=== PATIENT | male | born 1985 | race Hispanic/Latino ===

== ENCOUNTER 2019-12-27 22:51 | Emergency (ER) | payer SELFPAY ==
[2019-12-27] MEDS ORDERED: SUBLIMAZE 100 MCG/2 ML IV ONE (22:59)
[2019-12-27] MEDS ORDERED: BABY ASPIRIN 81 MG CHEW PO ONE (22:59)
[2019-12-27] MEDS ORDERED: Sodium Chloride 0.9% 1000 ML 1,000 ML IV STA (22:59)
[2019-12-27] MEDS ORDERED: BABY ASPIRIN 81 MG CHEW ONE (23:13)
[2019-12-27] MEDS ORDERED: Sodium Chloride 0.9% 1000 ML 1,000 ML ONE (23:14)
[2019-12-27] MEDS ORDERED: SUBLIMAZE 100 MCG/2 ML ONE (23:14)
[2019-12-27 23:27] LABS: Absolute Neutrophil Ct (ANC) 2.13 (1.4-6.9); BASOPHIL % 0.3 % (0.0-0.4); Basophil (Absolute #) 0.02 (0-0.4); Eosinophil % 2.6 % (0.00-5.0); Eosinophil (Absolute #) 0.16 (0-0.5); Hematocrit 41.1 % (42-50); Hemoglobin 15.6 gm/dl (12.5-18.0); Lymphocyte (Absolute #) 3.08 (1.0-4.6); Lymphocytes % 50.9 % (24.0-44.0); Mean Cell Volume 76.3 fl (78-100); Mean Corpuscular Hemoglobin 28.9 pg (26-32); Mean Platelet Volume 10.6 fl (7.5-11.0); Monocyte (Absolute #) 0.66 (0.0-1.3); Monocytes % 10.9 % (0.0-12.0); Neutrophil % 35.3 % (36.0-66.0); Platelet Count 215 K/mm3 (150-450); Red Blood Count 5.39 M/mm3 (4.1-5.6); Red Cell Distribution Width 13.2 % (11.5-14.0); White Blood Count 6.1 K/mm3 (4.0-10.5)
[2019-12-27 23:45] LABS: ALKALINE PHOSPHATASE 90 U/L (38-126); AMYLASE 94 U/L (30-110); ANION GAP 11.3 MEQ/L (5-15); BLOOD UREA NITROGEN 20 mg/dL (9-20); CHLORIDE 100 mmol/L (98-107); Calcium 9.7 mg/dL (8.4-10.2); Carbon Dioxide 31 mmol/L (22-30); Creatinine 1 0.78 mg/dL (0.66-1.25); Glucose 136 mg/dL (74-106); LIPASE 73 U/L (23-300); MAGNESIUM 1.8 mg/dL (1.6-2.3); NT PRO BNP 18.7 pg/mL (0-450); Potassium 3.4 mmol/L (3.5-5.1); SGOT/AST 39 U/L (17-59); SGPT/ALT 30 U/L (0-50); SODIUM 138 mmol/L (137-145); Total Protein 8.3 g/dL (6.3-8.2)
[2019-12-27 23:51] LABS: Erythrocyte Sedimentation Rate 2 mm/hr (0-15)
[2019-12-27 23:58] LABS: D-DIMER QUANTITATIVE < 85 ng/mL (215-500); INR 0.98 (0.8-3.0); PROTIME 11.1 SECONDS (8.83-12.87); PTT 40.2 SECONDS (24.1-36.1)
[2019-12-28 00:24] LABS: Appearance CLEAR (CLEAR); Bilirubin NEGATIVE (NEGATIVE); Blood NEGATIVE Ery/ul (0-5); Glucose NEGATIVE (NEGATIVE); Ketones NEGATIVE (NEGATIVE); Leukocyte Esterase NEGATIVE (NEGATIVE); Mucus SLIGHT /HPF (NEGATIVE); Nitrite NEGATIVE (NEGATIVE); Protein,Urine Dip NEGATIVE (Negative); Specific Gravity 1.008 (1.005-1.025); Urobilinogen NEGATIVE mg/dL (0-1)
--- NOTE | 2019-12-28 02:17 | ERPHSYRPT ---
- History of Present Illness Time Seen by Provider: 12/27/19 23:00 Historian: patient Exam Limitations: no limitations Patient Subjective Stated Complaint: pt c/o chest pain x2 weeks off and on, pain was worse tonight so decided to get checked out Triage Nursing Assessment: pt c/o lt sided chest pain, radiates down rt arm, c/ o lower back pain. Pt c/o dizziness and nausea, no vomiting. Lungs clear, heart tones reg. Physician History: patient is a 34-year-old male who presents with anterior chest pain which radiates to the right arm. It also radiates somewhat to the back of the neck this has been on for 2 weeks. Is also complaining of dizziness denies nausea vomiting or diaphoresis he has found his blood pressure to be elevated when he checked it at the drug store in the range of 163/94. His only risk factor is positive family history. Timing/Duration: week(s) (2) Activities at Onset: activity Quality: fullness, tightness Location: substernal Chest Pain Radiation: neck, arm, back Severity of Pain-Max: moderate Severity of Pain-Current: moderate Modifying Factors: Improves With: nothing Associated Symptoms: denies symptoms Prior Chest Pain/Cardiac Workup: no prior chest pain Nitro Today/Relief: no nitro taken today Aspirin Treatment Today: no aspirin today Allergies/Adverse Reactions: No Known Drug Allergies Allergy (Unverified 12/27/19 23:08) Home Medications: No Reportable Medications [No Reported Medications] 12/27/19 [History] Hx Tetanus, Diphtheria Vaccination/Date Given: Yes Hx Influenza Vaccination/Date Given: No Hx Pneumococcal Vaccination/Date Given: No Immunizations Up to Date: Yes - Review of Systems Constitutional: No Fever, No Chills Eyes: No Symptoms Ears, Nose, & Throat: No Symptoms Respiratory: No Cough, No Dyspnea Cardiac: Chest Pain, No Edema, No Syncope Abdominal/Gastrointestinal: No Abdominal Pain, No Nausea, No Vomiting, No Diarrhea Genitourinary Symptoms: No Dysuria Musculoskeletal: No Back Pain, No Neck Pain Skin: No Rash Neurological: Dizziness, No Focal Weakness, No Sensory Changes Psychological: No Symptoms Endocrine: No Symptoms All Other Systems: Reviewed and Negative - Past Medical History Pertinent Past Medical History: Yes Neurological History: No Pertinent History ENT History: No Pertinent History Cardiac History: No Pertinent History Respiratory History: Pneumonia Endocrine Medical History: No Pertinent History Musculoskeletal History: No Pertinent History GI Medical History: No Pertinent History History: No Pertinent History Psycho-Social History: No Pertinent History Male Reproductive Disorders: No Pertinent History - Past Surgical History Past Surgical History: No Neuro Surgical History: No Pertinent History Cardiac: No Pertinent History Respiratory: No Pertinent History Gastrointestinal: No Pertinent History Genitourinary: No Pertinent History Musculoskeletal: No Pertinent History Male Surgical History: No Pertinent History - Social History Smoking Status: Never smoker Exposure to second hand smoke: No Drug Use: none Patient Lives Alone: No - Nursing Vital Signs Nursing Vital Signs: Initial Vital Signs Temperature 97.8 F 12/27/19 22:56 Pulse Rate 66 12/27/19 22:56 Respiratory Rate 15 12/27/19 22:56 Blood Pressure 175/95 12/27/19 22:56 O2 Sat by Pulse Oximetry 99 12/27/19 22:56 Pain Scale Pain Intensity 2 - Physical Exam General Appearance: mild distress, alert Eye Exam: PERRL/EOMI, eyes nml inspection Ears, Nose, Throat Exam: normal ENT inspection, moist mucous membranes Neck Exam: normal inspection, non-tender, supple, full range of motion Respiratory Exam: normal breath sounds, lungs clear, No respiratory distress Cardiovascular Exam: regular rate/rhythm, normal heart sounds Gastrointestinal/Abdomen Exam: soft, No tenderness, No mass Back Exam: normal inspection, No CVA tenderness, No vertebral tenderness Extremity Exam: normal inspection, normal range of motion Neurologic Exam: alert, oriented x 3, cooperative, normal mood/affect, sensation nml, No motor deficits Skin Exam: normal color, warm, dry SpO2: 98 - Course Nursing assessment & vital signs reviewed: Yes EKG Interpreted by Me: RATE (70), Sinus Rhythm, NORMAL AXIS, NORMAL INTERVALS, NORMAL QRS - Radiology Exams Chest X-ray Interpretation: Interpreted by me, Negative - CT Exams Chest CT Interpretation: Tele-radiologist Report, Other (nnegative) Ordered Tests: Active Orders 24 hr Category Date Time Status Funds Development Director STAT Care 12/27/19 23:03 Active EKG-ER Only STAT Care 12/27/19 23:03 Active IV Insertion STAT Care 12/27/19 23:03 Active CHEST 1 VIEW (PORTABLE) Stat Exams 12/27/19 23:00 Taken CHEST WITH CONTRAST [CT] Stat Exams 12/28/19 00:45 Taken AMYLASE Stat Lab 12/27/19 23:23 Completed CBC W DIFF Stat Lab 12/27/19 23:23 Completed CMP Stat Lab 12/27/19 23:23 Completed D-DIMER QUANTITATIVE Stat Lab 12/27/19 23:23 Completed Erythrocyte Sedimentation Rate Stat Lab 12/27/19 23:23 Completed LIPASE Stat Lab 12/27/19 23:23 Completed Lactic Acid Stat Lab 12/27/19 23:25 Completed MAGNESIUM Stat Lab 12/27/19 23:23 Completed NT PRO BNP Stat Lab 12/27/19 23:23 Completed PROTIME WITH INR Stat Lab 12/27/19 23:23 Completed PTT Stat Lab 12/27/19 23:23 Completed TROPONIN Q3H Lab 12/27/19 23:23 Completed TROPONIN Q3H Lab 12/28/19 02:00 Ordered TROPONIN Q3H Lab 12/28/19 05:00 Ordered TROPONIN Q3H Lab 12/28/19 08:00 Ordered TROPONIN Q3H Lab 12/28/19 11:00 Ordered Medication Summary Discontinued Medications Generic Name Dose Route Start Last Admin Trade Name Freq PRN Reason Stop Dose Admin Aspirin 324 mg 12/27/19 22:59 12/27/19 23:16 Baby Aspirin 81 Mg Chew PO 12/27/19 23:00 324 mg STAT ONE Administration Aspirin Confirm 12/27/19 23:13 Baby Aspirin 81 Mg Chew Administered 12/27/19 23:14 Dose 324 mg .ROUTE .STK-MED ONE Fentanyl Citrate 50 mcg 12/27/19 22:59 12/27/19 23:16 Sublimaze 100 Mcg/2 Ml IV 12/27/19 23:00 50 mcg STAT ONE Administration Fentanyl Citrate Confirm 12/27/19 23:14 Sublimaze 100 Mcg/2 Ml Administered 12/27/19 23:15 Dose 100 mcg .ROUTE .STK-MED ONE Sodium Chloride 1,000 mls @ 999 mls/hr 12/27/19 22:59 12/27/19 23:16 Sodium Chloride 0.9% 1000 Ml IV 12/27/19 23:59 999 mls/hr .Q1H1M STA Administration Sodium Chloride Confirm 12/27/19 23:14 Sodium Chloride 0.9% 1000 Ml Administered 12/27/19 23:15 Dose 1,000 mls @ ud .ROUTE .STK-MED ONE Lab/Rad Data: Laboratory Result Diagrams 12/27/19 23:23 12/27/19 23:23 Laboratory Results 12/27/19 12/27/19 12/27/19 Range/Units 23:25 23:23 23:23 WBC (4.0-10.5) K/mm3 RBC (4.1-5.6) M/mm3 Hgb (12.5-18.0) gm/dl Hct (42-50) % MCV (78-100) fl MCH (26-32) pg MCHC (32-36) g/dl RDW (11.5-14.0) % Plt Count (150-450) K/mm3 MPV (7.5-11.0) fl Gran % (36.0-66.0) % Eos # (Auto) (0-0.5) Absolute Lymphs (auto) (1.0-4.6) Absolute Monos (auto) (0.0-1.3) Lymphocytes % (24.0-44.0) % Monocytes % (0.0-12.0) % Eosinophils % (0.00-5.0) % Basophils % (0.0-0.4) % Absolute Granulocytes (1.4-6.9) Basophils # (0-0.4) ESR (0-15) mm/hr PT 11.1 (8.83-12.87) SECONDS INR 0.98 (0.8-3.0) APTT 40.2 H (24.1-36.1) SECONDS D-Dimer < 85 L (215-500) ng/mL Sodium (137-145) mmol/L Potassium (3.5-5.1) mmol/L Chloride (98-107) mmol/L Carbon Dioxide (22-30) mmol/L Anion Gap (5-15) MEQ/L BUN (9-20) mg/dL Creatinine (0.66-1.25) mg/dL Estimated GFR ML/MIN Glucose (74-106) mg/dL Lactic Acid 1.5 (0.4-2.0) Calcium (8.4-10.2) mg/dL Magnesium (1.6-2.3) mg/dL Total Bilirubin (0.2-1.3) mg/dL AST (17-59) U/L ALT (0-50) U/L Alkaline Phosphatase (38-126) U/L Troponin I < 0.012 (0.000-0.034) ng/mL NT-Pro-B Natriuret Pep (0-450) pg/mL Serum Total Protein (6.3-8.2) g/dL Albumin (3.5-5.0) g/dL Amylase (30-110) U/L Lipase (23-300) U/L Urine Color (YELLOW) Urine Appearance (CLEAR) Urine pH (5-6) Ur Specific [place] (1.005-1.025) Urine Protein (Negative) Urine Ketones (NEGATIVE) Urine Blood (0-5) Don/ul Urine Nitrite (NEGATIVE) Urine Bilirubin (NEGATIVE) Urine Urobilinogen (0-1) mg/dL Ur Leukocyte Esterase (NEGATIVE) Urine WBC (Auto) (0-5) /HPF Urine RBC (Auto) (0-2) /HPF U Epithel Cells (Auto) (FEW) /HPF Urine Bacteria (Auto) (NEGATIVE) /HPF Urine Mucus (Auto) (NEGATIVE) /HPF Urine Culture Reflexed (NO) Urine Glucose (NEGATIVE) mg/dL 12/27/19 12/27/19 12/27/19 Range/Units 23:23 23:23 00:05 WBC 6.1 (4.0-10.5) K/mm3 RBC 5.39 (4.1-5.6) M/mm3 Hgb 15.6 (12.5-18.0) gm/dl Hct 41.1 L (42-50) % MCV 76.3 L (78-100) fl MCH 28.9 (26-32) pg MCHC 38.0 H (32-36) g/dl RDW 13.2 (11.5-14.0) % Plt Count 215 (150-450) K/mm3 MPV 10.6 (7.5-11.0) fl Gran % 35.3 L (36.0-66.0) % Eos # (Auto) 0.16 (0-0.5) Absolute Lymphs (auto) 3.08 (1.0-4.6) Absolute Monos (auto) 0.66 (0.0-1.3) Lymphocytes % 50.9 H (24.0-44.0) % Monocytes % 10.9 (0.0-12.0) % Eosinophils % 2.6 (0.00-5.0) % Basophils % 0.3 (0.0-0.4) % Absolute Granulocytes 2.13 (1.4-6.9) Basophils # 0.02 (0-0.4) ESR 2 (0-15) mm/hr PT (8.83-12.87) SECONDS INR (0.8-3.0) APTT (24.1-36.1) SECONDS D-Dimer (215-500) ng/mL Sodium 138 (137-145) mmol/L Potassium 3.4 L (3.5-5.1) mmol/L Chloride 100 (98-107) mmol/L Carbon Dioxide 31 H (22-30) mmol/L Anion Gap 11.3 (5-15) MEQ/L BUN 20 (9-20) mg/dL Creatinine 0.78 (0.66-1.25) mg/dL Estimated GFR > 60.0 ML/MIN Glucose 136 H (74-106) mg/dL Lactic Acid (0.4-2.0) Calcium 9.7 (8.4-10.2) mg/dL Magnesium 1.8 (1.6-2.3) mg/dL Total Bilirubin 0.40 (0.2-1.3) mg/dL AST 39 (17-59) U/L ALT 30 (0-50) U/L Alkaline Phosphatase 90 (38-126) U/L Troponin I (0.000-0.034) ng/mL NT-Pro-B Natriuret Pep 18.7 (0-450) pg/mL Serum Total Protein 8.3 H (6.3-8.2) g/dL Albumin 5.0 (3.5-5.0) g/dL Amylase 94 (30-110) U/L Lipase 73 (23-300) U/L Urine Color STRAW (YELLOW) Urine Appearance CLEAR (CLEAR) Urine pH 7.0 (5-6) Ur Specific [place] 1.008 (1.005-1.025) Urine Protein NEGATIVE (Negative) Urine Ketones NEGATIVE (NEGATIVE) Urine Blood NEGATIVE (0-5) Don/ul Urine Nitrite NEGATIVE (NEGATIVE) Urine Bilirubin NEGATIVE (NEGATIVE) Urine Urobilinogen NEGATIVE (0-1) mg/dL Ur Leukocyte Esterase NEGATIVE (NEGATIVE) Urine WBC (Auto) NONE (0-5) /HPF Urine RBC (Auto) NONE (0-2) /HPF U Epithel Cells (Auto) NONE (FEW) /HPF Urine Bacteria (Auto) NONE (NEGATIVE) /HPF Urine Mucus (Auto) SLIGHT (NEGATIVE) /HPF Urine Culture Reflexed NO (NO) Urine Glucose NEGATIVE (NEGATIVE) mg/dL - Progress Progress: improved Air Movement: good Blood Culture(s) Obtained: No Antibiotics given: No - Departure Departure Disposition: Home Clinical Impression: Hypertension, Chest pain Referrals: DOCTOR,NO FAMILY [Primary Care Provider] - Instructions: High Blood Pressure (DC), Chest Pain (DC)
[2019-12-28] MEDS ORDERED: Zestril 10 MG PO STA (02:18)
[2019-12-28] MEDS ORDERED: NORVASC 5 MG ONE (02:25)
[2019-12-28] MEDS ORDERED: NORVASC 5 MG PO ONE (02:25)
[2019-12-28 02:47] VITALS: BP 116/89; PULSE 60; O2SAT 99
--- NOTE | 2019-12-28 08:52 | XRAY ---
Indication: Left pleuritic chest pain. Nausea and dizziness. Multiple contiguous axial images obtained through the chest using 80 cc Isovue 370 contrast. Comparison: None Lungs are inflated without suspicious pulmonary mass, infiltrate, consolidation, or effusion. Minimal right middle lobe fibrosis/scarring. Heart is not enlarged. Aorta is normal in course and caliber. No pathologic mediastinal/hilar lymphadenopathy. Bony thorax intact. Limited upper abdomen including adrenal glands are unremarkable. Impression: Minimal right middle lobe fibrosis/scarring. Remaining CT chest with contrast exam is negative. Comment: Preliminary interpretation was made by [facility]. No critical discrepancy.
--- NOTE | 2019-12-28 08:52 | XRAY ---
Indication: Left chest pain. Comparison: None Portable chest demonstrates normal heart, lungs, and bony thorax.
== END 2019-12-28 02:40 | disposition home or self-care (01) ==
LOC: ED 22:51
DX: I10 Essential (primary) hypertension (principal); R07.89 Other chest pain; R42 Dizziness and giddiness
CPT/HCPCS: 36000; 36415; 71045; 71260; 80053; 81001; 82150; 83605; 83690; 83735; 83880; 84484; 85025; 85379; 85610; 85652; 85730; 93005; 93041; 96374; 99284; J3010; A9270-GY